=== PATIENT | female | born 1980 | race Two or more races ===

== ENCOUNTER 2018-06-29 19:09 | Emergency (ER) | payer OTHER ==
[~2018-06-29] VITALS: Ht 154.9 cm; Wt 53.5 kg
== END 2018-06-29 22:23 | disposition home or self-care (01) ==
LOC: ER 19:09
DX: N93.8 Other specified abnormal uterine and vaginal bleeding (principal)

== ENCOUNTER 2018-07-24 09:57 | Outpatient (CLI) | payer OTHER | END 2018-07-24 10:02 | disposition home or self-care (01) | LOC: RAD 09:57 | DX: R07.89 Other chest pain (principal) ==

== ENCOUNTER 2018-08-06 05:55 | Day surgery (SDC) | payer OTHER ==
[~2018-08-06 05:55] MED LIST: NIKKI 3 MG-0.01 EACH PO
== END 2018-08-06 12:25 | disposition home or self-care (01) ==
LOC: CIR.AMB 05:55
DX: N84.0 Polyp of corpus uteri (principal); D25.0 Submucous leiomyoma of uterus